=== PATIENT | male | born 1960 | race Caucasian/White ===

== ENCOUNTER 2016-09-02 16:30 | Inpatient (IN) | payer BC ==
[~2016-09-02] VITALS: Ht 172.7 cm; Wt 95.2 kg
--- NOTE | ~2016-09-02 | H ---
[facility] [address] [place] [address] HISTORY AND PHYSICAL Name: BEAU CR Room #: 210-P [facility] IN M.R.#: [id number] Admission: 09/02/16 Attend Phys: Harsha Duran MD, Discharge: 09/09/16 Date of : 62 Report #: [id number] THIS REPORT FOR: //name// For History and Physical, please see office documentation/handwritten note in the patient's medical record. <ELECTRONICALLY SIGNED> By: Harsha Duran MD, FACC 09/16/16 0936 1449 Harsha Duran MD, FACC /jr
--- NOTE | ~2016-09-02 | EKG ---
[address] [place] [address] ELECTROCARDIOGRAM REPORT Name: BEAU CR Room #: 210-P ADM IN M.R.#: [id number] Admission: 09/02/16 Attend Phys: Harsha Duran MD, Discharge: Date of : 62 Report #: [id number] THIS REPORT FOR: //name// [facility] Test Date: 2016-09-08 Test Time: 06:41:02 Pat Name: BEAU CR Department: Room: 210 P Gender: M Picture Painter: ang : 1960 Requested By: Charlie Benítez Order Number: [id number] MD: Wallace Jett Measurements Intervals [place] Rate: 103 P: 9 MD: 146 QRS: -27 QRSD: 134 T: 31 QT: 376 QTc: 492 Interpretive Statements Sinus tachycardia Right bundle branch block Cannot rule out anteroseptal infarct, age indeterminate Compared to ECG 09/03/2016 19:41:04 No significant change was found Electronically Signed On 09-08-2016 9:04:13 ICT PROGRAMMER by Wallace Jett [email or web address] <ELECTRONICALLY SIGNED> By: Wallace Jett MD, [facility] 09/08/16 0904 0641 0641 Wallace Jett MD, [facility] /EPI
--- NOTE | ~2016-09-02 | O ---
[facility] [address] [address] OPERATIVE REPORT Name: BEAU CR Room #: 210-P [facility] IN M.R.#: [id number] Admission: 09/02/16 Attend Phys: Harsha Duran MD, Discharge: 09/09/16 Date of : 62 Report #: [id number] THIS REPORT FOR: //name// CC: HARSHA Narayan DO AMENDED REPORT - SEE BELOW DATE OF SERVICE: 09/04/2016 PREOPERATIVE DIAGNOSIS: Coronary artery disease. POSTOPERATIVE DIAGNOSIS: Coronary artery disease. OPERATION: Coronary artery bypass x 4 including left internal mammary artery to left anterior descending artery, saphenous vein to diagonal, marginal 1, and marginal 2 and endoscopic harvest, left greater saphenous vein. SURGEON: Charlie Benítez M.D. LAUNDRY EQUIPMENT OPERATOR: Maged. ANESTHESIA: General. INDICATIONS: The patient was seen at the request of Dr. Duran. The patient has progressive exertional angina and some rest angina. Catheterization demonstrated important coronary artery disease in the LAD and circumflex system. The LAD is chronically occluded as high-grade lesions in the circumflex and the first marginal and there was left main stenosis as well. The right coronary had trivial disease. Left ventricular function reasonable overall with some anteroapical hypokinesis. FINDINGS AND TECHNIQUE: After general anesthesia was established, saphenous vein was harvested using an endoscopic approach and prepared for use as a conduit. Exposure was obtained through median sternotomy. Left internal mammary artery was harvested from chest wall. Pericardial well was made. Cannulation sutures were placed. Heparin was given. Aorta was cannulated. Right atrium was cannulated. Cardioplegia needle was positioned in the aortic root. Retrograde cardioplegic catheter was placed in coronary sinus. Cardiopulmonary bypass was established. The aorta was cross clamped. Antegrade and retrograde cardioplegia were given. Ice was poured in the pericardial well. The heart was stopped. [facility] [address] [place] [address] OPERATIVE REPORT Name: BEAU CR Room #: 210-P [facility] IN [facility]#: [id number] Admission: 09/02/16 Attend Phys: Harsha Duran MD, Discharge: 09/09/16 Date of : 62 Report #: [id number] During electromechanical arrest, the distal anastomoses were performed, an end-to-side anastomosis was made between the vein and the second marginal. This was a 1.5 mm vessel. Cold cardioplegia was given. Same segment of vein was sewn in rapa-cg-[id number] fashion to first marginal. Cold cardioplegia was given. Same segment of vein was sewn in [id number]-ft-wgpt fashion to first diagonal. This was a 1.3 mm vessel. Cold cardioplegia was given. Left internal mammary artery was sewn in end-to-side fashion to left anterior descending artery. This was a 1.5 mm vessel where bypassed. The anastomosis was checked with the temperature technique. Cold cardioplegia was given. One proximal anastomosis was performed and this was complete, warm retrograde cardioplegia was given followed by warm continuous blood to the coronary sinus. When this infusion was complete, the crossclamp was removed, de-airing maneuvers were performed. The anastomoses were inspected and found to be satisfactory. As the patient warmed, nice cardiac activity resumed, chest tubes and pacing wires were placed, a marker was placed around the proximal anastomosis. When the patient was warmed, he was weaned from cardiopulmonary bypass. Venous cannula was removed. Protamine was given, the aortic cannula was removed. Flows were measured in the bypass grafts. Flow was 94 mL per minute. A good Doppler signal was audible in the internal mammary artery. Total cross clamp time was 80 minutes. Total pump time was 98 minutes. When hemostasis was satisfactory, chest was irrigated with antibiotic solution and closed in the usual fashion. The patient was taken to the Intensive Care Unit in good condition having tolerated the procedure well. All counts reported as correct. AMENDED - 09/08/16 REPORT ORIGINALLY E.SIGNED - 09/07/16 @ 0937 Report was edited to add date of service. <ELECTRONICALLY SIGNED> By: Charlie Benítez MD 09/13/16 1024 1928 2257 Charlie Benítez MD /nt
--- NOTE | ~2016-09-02 | EKG ---
[address] [address] ELECTROCARDIOGRAM REPORT Name: BEAU CR Room #: 150- ADM IN .R.#: [id number] Admission: 09/02/16 Attend Phys: Harsha Duran MD, Discharge: Date of : 62 Report #: [id number] THIS REPORT FOR: //name// [facility] ED Test Date: 2016-09-02 Test Time: 16:34:15 Pat Name: BEAU CR Department: Room: 150 Gender: M Cardiology Consultant: NATACHA : 1960 Requested By: Margarita Marquez Order Number: [id number] MD: Hernandez Ruiz Measurements Intervals [place] Rate: 85 P: 49 [place]: 167 QRS: -32 QRSD: 91 T: 46 QT: 357 QTc: 425 Interpretive Statements Sinus rhythm Left axis deviation Low voltage, precordial leads Probable anteroseptal infarct, old Minimal ST depression, lateral leads No previous ECG available for comparison Electronically Signed On 09-04-2016 10:56:24 ELECTRICAL EQUIPMENT TESTER by Hernandez Ruiz [email or web address] <ELECTRONICALLY SIGNED> By: Hernandez Ruiz MD 09/04/16 1056 1634 1634 Hernandez Ruiz MD /EPI
--- NOTE | ~2016-09-02 | HC ---
[facility] [address] [place] [address] CONSULTATION Name: BEAU CR Room #: 210-P [facility] IN M.R.#: [id number] Admission: 09/02/16 Attend Phys: Harsha Duran MD, Discharge: Date of : 62 Report #: [id number] THIS REPORT FOR: //name// CC: Harsha Narayan We were asked by Dr. Duran to see the patient. HISTORY OF PRESENT ILLNESS: The patient is a 55-year-old with coronary artery disease. The patient states that he has had progressive exertional angina over the last year and particularly the patient has noted substernal chest discomfort with exertion. This is not radiating, was thought to be epigastric or possibly GI in origin, but ultimately he sought cardioplegic evaluation. As mentioned, this was substernal chest pain without radiation occuring with exertion and sometimes at rest. No diaphoresis, no nausea, moderately severe and progressive over the last few months. Cardiac catheterization today demonstrates important left-sided disease. There is a 70% left main lesion as well as a total occlusion of the LAD that was filled by right to left collaterals, diagonal 1 is a 95% lesion and circumflex is a 95% lesions, right coronary has trivial disease, left ventricular function appeared satisfactory with some anteroapical hypokinesis. PAST MEDICAL HISTORY: Significant for hypertension, hyperlipidemia and benign prostatic hypertrophy. ALLERGIES: ATORVASTATIN, FLOMAX, TRAMADOL, FIBERCON, PROSCAR. HOME MEDICATIONS: Include doxycycline and lisinopril. FAMILY HISTORY: Is positive for coronary artery disease. Father had coronary artery bypass in his 60s. SOCIAL HISTORY: The patient is nonsmoker. He is with two children. REVIEW OF SYSTEMS: CONSTITUTIONAL: The patient has had fatigue over the last few months, no sleeping issues. HEENT: No vision problems, no hearing problems, no vertigo, no headaches. RESPIRATORY: Some mild shortness of breath with exertion and fatigue. No cough, no sputum production. CARDIAC: As mentioned epigastric or epicardial discomfort. No palpitations. SKIN: No rash or infection. ENDOCRINE: No hot or cold intolerance. No lack or concentration. GASTROINTESTINAL: No nausea, vomiting, diarrhea. [facility] [address] [place] [address] CONSULTATION Name: BEAU CR Patel Room #: [address] [place] [address]#: [id number] Admission: 09/02/16 Attend Phys: Harsha Duran MD, Discharge: Date of : 62 Report #: [id number] GENITOURINARY: The patient has had symptoms of prostatism including frequency, urgency. NEUROLOGIC: No motor or sensory dysfunction. PSYCHIATRIC: No hallucination, depression or anxiety. MUSCULOSKELETAL: No bone or joint pain. IMMUNOLOGIC: No lupoid rash, no rheumatoid . PHYSICAL EXAMINATION: GENERAL: The patient is a pleasant fellow. VITAL SIGNS: Blood pressure 106/62, heart rate 65, respiratory rate 18, temperature 36.8, O2 sat 97 on room air. The patient is somewhat diminutive and endomorphic . HEENT: Pupils are round, equal, normocephalic, gaze conjugate. NECK: No lymphadenopathy, no bruit. CHEST: Clear to auscultation. HEART: Rhythm regular, no murmurs or gallops. ABDOMEN: Soft, no mass, no tenderness. EXTREMITIES: No clubbing, cyanosis or edema, 2+ distal pulses. No obvious saphenous vein problems. SKIN: No rash or infection. MUSCULOSKELETAL: No bone or joint dyssymmetry or deformity. NEUROLOGIC: Motor and sensory intact without deficit. Oriented and appropriate. PSYCHIATRIC: Shows insight into problem. Mood is appropriate neither artificially elevated or depressed. ASSESSMENT: The patient has important left main and a left-sided disease. I have recommended coronary artery bypass surgery. Risks include, but are not limited to bleeding, infection, anesthesia risks, heart and lung problems, stroke and . Options and alternatives were reviewed. The patient understands all of this and he wishes to proceed. We plan surgery for tomorrow morning. Thank you for the consult. <ELECTRONICALLY SIGNED> By: Charlie Benítez MD 09/07/16 0937 30 24 Charlie Benítez MD /nt
--- NOTE | ~2016-09-02 | EKG ---
[address] [place] [address] ELECTROCARDIOGRAM REPORT Name: BEAU CR Room #: 210-P [facility] IN .R.#: [id number] Admission: 09/02/16 Attend Phys: Harsha Duran MD, Discharge: Date of : 62 Report #: [id number] THIS REPORT FOR: //name// [facility] Test Date: 2016-09-05 Test Time: 07:18:25 Pat Name: BEAU CR Department: Room: 210 Gender: M Internet Sales Manager: isabelle : 1960 Requested By: Wai Lynne Order Number: [id number] MD: Wallace Jett Measurements Intervals [place] Rate: 81 P: 33 [place]: 147 QRS: -33 QRSD: 132 T: 59 QT: 396 QTc: 460 Interpretive Statements Sinus rhythm Right bundle branch block Compared to ECG 09/03/2016 19:41:04 no significant change was found Electronically Signed On 09-08-2016 8:19:58 TUBE ROOM SUPERVISOR by Wallace Jett [email or web address] <ELECTRONICALLY SIGNED> By: Wallace Jett MD, [facility] [id number] 7 Wallace Jett MD, [facility] /EPI
--- NOTE | ~2016-09-02 | EKG ---
[address] [place] [address] ELECTROCARDIOGRAM REPORT Name: BEAU CR Room #: 210-[facility] IN .R.#: [id number] Admission: 09/02/16 Attend Phys: Harsha Duran MD, Discharge: Date of : 62 Report #: [id number] THIS REPORT FOR: //name// Test Date: 2016-09-04 Test Time: 14:47:56 Pat Name: BEAU CR Department: Room: 210 Gender: M Warehouse Receiving Clerk: Perfecto SHERIFF : 1960 Requested By: Wai Lynne Order Number: [id number] MD: Wallace Jett Measurements Intervals [place] Rate: 94 P: 39 [place]: 159 QRS: -47 QRSD: 132 T: 29 QT: 374 QTc: 468 Interpretive Statements Sinus rhythm Right bundle branch block Anteroseptal infarct, age indeterminate Compared to ECG 09/03/2016 19:41:04 Right bundle-branch block now present Electronically Signed On 09-08-2016 8:06:50 FISH WARDEN by Wallace Jett [email or web address] <ELECTRONICALLY SIGNED> By: Wallace Jett MD, [facility] 09/08/16 0806 1447 1447 Wallace Jett MD, [facility] /EPI
--- NOTE | ~2016-09-02 | EKG ---
[address] [place] [address] ELECTROCARDIOGRAM REPORT Name: BEAU CR Room #: 150-10 ADM IN .R.#: [id number] Admission: 09/02/16 Attend Phys: Harsha Duran MD, Discharge: Date of : 62 Report #: [id number] THIS REPORT FOR: //name// [facility] Test Date: 2016-09-03 Test Time: 19:41:04 Pat Name: BEAU CR Department: Room: 150 Gender: M Adjustment Examiner: Perfecto SHERIFF : 1960 Requested By: Charlie Benítez Order Number: [id number] MD: Hernandez Ruiz Measurements Intervals [place] Rate: 76 P: 45 [place]: 161 QRS: -39 QRSD: 101 T: 76 QT: 371 QTc: 418 Interpretive Statements Sinus rhythm Left axis deviation Probable anteroseptal infarct, old Minimal ST depression, lateral leads No previous ECG available for comparison Electronically Signed On 09-04-2016 11:16:53 SCRIPT READER by Hernandez Ruiz [email or web address] <ELECTRONICALLY SIGNED> By: Hernandez Ruiz MD 09/04/16 1116 40 40 Hernandez Ruiz MD /EPI
--- NOTE | ~2016-09-02 | CATHLAB ---
[facility] [address] [place] [address] INVASIVE PROCEDURE REPORT Name: BEAU CR Room #: 210-P [facility] IN .#: [id number] Admission: 09/02/16 Attend Phys: Harsha Duran, Discharge: 09/09/16 Date of : 62 Date of Service: 09/03/16 0934 Report #: [id number] THIS REPORT FOR: //name// CC: Harsha Narayan DO DESCRIPTION OF PROCEDURE: The patient brought to the catheterization lab with unstable angina, recurrent chest pain. The right groin was prepped and draped in sterile manner. Then 1% Xylocaine was used for local anesthesia. Versed was given for conscious sedation. A 6-Nepali sheath in the right femoral artery. All exchanges were made over the wire. Initially, a straight pigtail catheter performed a single WATTERS ventriculogram and AP aortogram. There is anterior apical hypokinesis, EF was 45 to 50%. The abdominal aorta was intact without aneurysm. Iliac and renal arteries were widely patent. FL4 for left coronary system, FR4 for the right coronary system, multiple views, no obliques were taken. There was evidence of high-grade proximal disease, distal left main, 70% ostial LAD, 70 to 80 proximal LAD, then occludes. Diagonal branch, first diagonal is high grade lesion, filling a bifurcating diagonal. Circumflex OM is a high grade 90 to 95% proximal lesion with 2 large OM branches. The third OM branch is mildly diseased ____, but good targets are noted on the OM branches and the diagonal. The JR4 for the right coronary artery fills the right coronary which has mild disease, 40 to 50% mid vessel lesions and the PDA and AILEEN, they briskly fills the entire LAD via the right coronary artery. So I suspect the entire anterior wall is viable. The patient tolerated this well without any hemodynamic compromise. A vascular sheath was removed with a Mynx closure. IV Lopressor was given for some mild tachycardia. He is hemodynamically stable. Transferred back to CCU for CV surgical consultation. Carotid Doppler has been already performed and echo in the office, those reports are in the chart. HEMODYNAMICS: At 108/72, LV 112/5. IMPRESSION: 1. Left main: Distal left main 70%. 2. Left anterior descending coronary artery ostial narrowing of ____, her 80% ostial narrowing within a total occlusion of the left anterior descending coronary artery, which is filled via left, but predominantly right collaterals. This is a wraparound left anterior descending coronary artery, which looks to be well preserved on the right coronary artery shots. 3. First diagonal high grade bifurcating lesion 95%. 4. Proximal circumflex nondominant but large 95% proximal lesion with well-preserved small first obtuse marginal coronary artery, large second obtuse marginal coronary artery widely patent, third obtuse marginal coronary artery 60 to 70% proximal. Second obtuse marginal artery and third obtuse marginal artery will be targets for bypass. 5. Dominant right large vessel mildly ectatic, giving rise to the posterior [facility] [address] [place] [address] INVASIVE PROCEDURE REPORT Name: BEAU CR Room #: 210-P [facility] IN M.R.#: [id number] Admission: 09/02/16 Attend Phys: Harsha Duran, Discharge: 09/09/16 Date of : 62 Date of Service: 09/03/16 0934 Report #: [id number] descending coronary artery and posterolateral coronary artery, 40% proximal and 50% midvessel, right coronary artery lesions briskly filling the entire left anterior descending coronary artery from collateral filling. 6. Normal left ventricular size with anterior apical hypokinesis, ejection fraction 45 to 50% range. 7. Abdominal aorta is intact without aneurysm. Single renal arteries and iliacs widely patent. 8. Successful closure of the right femoral artery with a Mynx closure device. RECOMMENDATIONS: Continue aggressive risk factor modification, CV surgical consultation, revascularization by bypass, echo Doppler reports and carotid Doppler reports from yesterday in the office or on the chart. We will hopefully proceed in the a.m. with revascularization by bypass. The patient came in with unstable anginal symptoms, pain relieved with nitroglycerin and heparin. We will restart nitroglycerin and hold on heparin unless he will have recurrent pain. <ELECTRONICALLY SIGNED> By: Harsha Duran MD, [facility] 09/16/16 0935 0934 51 Harsha Duran MD, FACC /nt
[2016-09-02 16:37] VITALS: BP 144/98
[2016-09-02] MEDS ORDERED: PROSCAR 5MG TABL5 M1 PO (17:00)
[2016-09-02 17:01] LABS: ABSOLUTE NEUTROPHILS 5.4 thou/uL (1.4-8.2); BASOPHILS 0.8 % (0.0-2.0); EOSINOPHILS 1.1 % (0.0-3.0); HEMATOCRIT 44.9 % (42.0-52.0); HEMOGLOBIN 15.5 gm/dL (14.0-18.0); LYMPHOCYTES 19.9 % (24.0-44.0); MANUAL DIFF NO; MCH 31.9 pg (26.0-34.0); MCHC 34.6 % (28.0-37.0); MONOCYTES 7.2 % (1.0-8.0); PLATELET COUNT 227 thou/uL (150-400); RBC 4.88 mil/uL (4.50-6.00); RDW 13.2 % (10.5-14.5); WBC 7.6 thou/uL (4.0-11.0)
[2016-09-02 17:15] LABS: APTT 27.7 Seconds (24.5-32.8); PROTIME 10.8 Seconds (9.3-11.4)
[2016-09-02 17:21] LABS: ANION GAP 8 mmol/L (7-16); BUN 15 mg/dL (7-18); CALCIUM 9.2 mg/dL (8.5-10.1); CHLORIDE 102 mmol/L (98-107); CO2 29 mmol/L (21-32); GLUCOSE 92 mg/dL (70-99); POTASSIUM 4.4 mmol/L (3.5-5.1); SODIUM 139 mmol/L (136-145); TROPONIN-I < 0.04 ng/mL (<0.04-0.07)
[2016-09-02] MEDS ORDERED: FLOMAX0.4 MG PO (17:24)
[2016-09-02] MEDS ORDERED: FIBERCON625 M1 PO (17:24)
[2016-09-02] MEDS ORDERED: TRAMADOL 50 MG50 MG PO (17:24)
[2016-09-02] MEDS ORDERED: LIPITOR 20 MG T20 M1 PO (17:26)
[2016-09-02] MEDS ORDERED: MELOXICAM15 MG PO (17:26)
[2016-09-02] MEDS ORDERED: LOPRESSOR50 PO (17:26)
[2016-09-02 18:04] VITALS: BP 126/85
[2016-09-02 18:25] VITALS: BP 120/84
[2016-09-02 19:47] VITALS: BP 107/63
[2016-09-03] VITALS (12 sets, daily range): BP systolic 103–148; BP diastolic 62–82
[2016-09-03 15:27] LABS: HEMATOCRIT 45.1 % (42.0-52.0); HEMOGLOBIN 15.5 gm/dL (14.0-18.0); MCHC 34.3 % (28.0-37.0); MCV 93.2 fL (80.0-100.0); RBC 4.84 mil/uL (4.50-6.00); RDW 13.4 % (10.5-14.5)
[2016-09-03 15:35] LABS: CALCIUM 8.9 mg/dL (8.5-10.1); CREATININE 1.2 mg/dL (0.6-1.3); POTASSIUM 4.2 mmol/L (3.5-5.1)
[2016-09-03 15:41] LABS: ALBUMIN 3.6 g/dL (3.4-5.0); TOTAL BILIRUBIN 0.5 mg/dL (<0.1-1.0); TOTAL PROTEIN 6.6 g/dL (6.4-8.2)
[2016-09-03 15:47] LABS: APTT 30.1 Seconds (24.5-32.8); INR 1.1; PROTIME 10.9 Seconds (9.3-11.4)
[2016-09-03 18:41] LABS: URINE BILIRUBIN NEGATIVE (Negative); URINE BLOOD NEGATIVE (Negative); URINE COLOR YELLOW; URINE GLUCOSE-RANDOM* NEGATIVE (Negative); URINE KETONES NEGATIVE (Negative); URINE LEUKOCYTES-REFLEX NEGATIVE (Negative); URINE PROTEIN (DIPSTICK) NEGATIVE (Negative); URINE SPECIFIC GRAVITY 1.015 (1.003-1.035); URINE UROBILINOGEN 0.2 E.U./dl (0.2-1.0)
[2016-09-04 02:06] LABS: GLYCOHEMOGLOBIN (HGB A1C) 5.2 % (4.8-5.6)
[2016-09-04 05:05] LABS: HEMOGLOBIN 14.7 gm/dL (14.0-18.0); MCH 31.9 pg (26.0-34.0); MCHC 33.3 % (28.0-37.0); MCV 95.6 fL (80.0-100.0); RBC 4.6 mil/uL (4.50-6.00); RDW 13.3 % (10.5-14.5); WBC 8.8 thou/uL (4.0-11.0)
[2016-09-04 05:15] LABS: CALCIUM 8.9 mg/dL (8.5-10.1); CREATININE 0.9 mg/dL (0.6-1.3); POTASSIUM 4.2 mmol/L (3.5-5.1)
[2016-09-04 05:42] VITALS: BP 136/84
[2016-09-04 07:15] VITALS: BP 114/75
[2016-09-04 13:04] VITALS: BP 107/67
[2016-09-04 13:06] LABS: ABG SAMPLE TYPE ARTERIAL; BE(vivo) -4.3 mmol/L (-2 to +3); HCO3 21.8 mmol/L (22.0-26.0); LACTATE 2.06 mmol/L (0.5-2.0); O2(CT) 17.7 mL/dL (15.0-23.0); PCO2 43.7 mmHg (35.0-45.0); PO2 143.7 mmHg (80.0-100.0); sO2 98.6 % (92.0-98.0); tCO2 23.1 mmol/L (24.0-30.0)
[2016-09-04 13:07] LABS: STICK SITE ART LINE; TIDAL VOLUME 700 ml; pH 7.315 (7.360-7.450)
[2016-09-04 13:08] LABS: VDS CMV MODE cc
[2016-09-04 13:09] LABS: POC BE 0 mmol/L (-2.0 to +3.0); POC CA IONIZED 4.6 mg/dL (4.5-5.3); POC FiO2 100 %; POC GLUCOSE 140 mg/dL (70-99); POC HCO3 25.6 mmol/L (22.0-26.0); POC HEMOGLOBIN 12.9 gm/dL (14.0-18.0); POC POTASSIUM 4.8 mmol/L (3.5-5.1); POC SODIUM 136 mmol/L (136-145); POC pCO2 45.1 mmHg (35.0-45.0); POC pH 7.362 (7.360-7.450)
[2016-09-04 13:09] LABS: POC BE -2 mmol/L (-2.0 to +3.0); POC FiO2 100 %; POC GLUCOSE 154 mg/dL (70-99); POC HCO3 24.2 mmol/L (22.0-26.0); POC HEMOGLOBIN 9.2 gm/dL (14.0-18.0); POC SODIUM 135 mmol/L (136-145); POC pCO2 44.9 mmHg (35.0-45.0)
[2016-09-04 13:09] LABS: POC BE 0 mmol/L (-2.0 to +3.0); POC CA IONIZED 4.1 mg/dL (4.5-5.3); POC FiO2 100 %; POC GLUCOSE 139 mg/dL (70-99); POC HCO3 25.7 mmol/L (22.0-26.0); POC HEMOGLOBIN 10.5 gm/dL (14.0-18.0); POC POTASSIUM 5.6 mmol/L (3.5-5.1); POC SODIUM 134 mmol/L (136-145); POC pH 7.347 (7.360-7.450)
[2016-09-04 13:09] LABS: POC BE -2 mmol/L (-2.0 to +3.0); POC CA IONIZED 4.1 mg/dL (4.5-5.3); POC FiO2 100 %; POC GLUCOSE 173 mg/dL (70-99); POC HCO3 23.3 mmol/L (22.0-26.0); POC HEMOGLOBIN 9.5 gm/dL (14.0-18.0); POC SODIUM 132 mmol/L (136-145); POC pCO2 41.4 mmHg (35.0-45.0); POC pH 7.359 (7.360-7.450)
[2016-09-04 13:09] LABS: POC BE -1 mmol/L (-2.0 to +3.0); POC CA IONIZED 4.1 mg/dL (4.5-5.3); POC FiO2 100 %; POC GLUCOSE 150 mg/dL (70-99); POC HCO3 24.9 mmol/L (22.0-26.0); POC HEMOGLOBIN 9.5 gm/dL (14.0-18.0); POC SODIUM 130 mmol/L (136-145); POC pCO2 47.7 mmHg (35.0-45.0); POC pH 7.325 (7.360-7.450)
[2016-09-04 13:09] LABS: POC BE -3 mmol/L (-2.0 to +3.0); POC CA IONIZED 4.6 mg/dL (4.5-5.3); POC FiO2 100 %; POC GLUCOSE 145 mg/dL (70-99); POC HCO3 22.6 mmol/L (22.0-26.0); POC HEMOGLOBIN 11.2 gm/dL (14.0-18.0); POC POTASSIUM 4.3 mmol/L (3.5-5.1); POC SODIUM 138 mmol/L (136-145); POC pH 7.361 (7.360-7.450)
[2016-09-04 13:09] LABS: POC BE 0 mmol/L (-2.0 to +3.0); POC CA IONIZED 4.7 mg/dL (4.5-5.3); POC FiO2 100 %; POC GLUCOSE 115 mg/dL (70-99); POC HCO3 25.3 mmol/L (22.0-26.0); POC HEMOGLOBIN 12.6 gm/dL (14.0-18.0); POC POTASSIUM 4.3 mmol/L (3.5-5.1); POC SODIUM 138 mmol/L (136-145); POC pCO2 44.4 mmHg (35.0-45.0); POC pH 7.364 (7.360-7.450)
[2016-09-04 13:09] LABS: POC BE -6 mmol/L (-2.0 to +3.0); POC CA IONIZED 4.2 mg/dL (4.5-5.3); POC FiO2 100 %; POC GLUCOSE 135 mg/dL (70-99); POC HCO3 20.8 mmol/L (22.0-26.0); POC HEMOGLOBIN 10.9 gm/dL (14.0-18.0); POC POTASSIUM 5.6 mmol/L (3.5-5.1); POC SODIUM 135 mmol/L (136-145); POC pCO2 42.8 mmHg (35.0-45.0); POC pH 7.295 (7.360-7.450)
[2016-09-04 13:15] VITALS: BP 97/67
[2016-09-04 13:19] LABS: HEMATOCRIT 36.6 % (42.0-52.0); MCH 31.8 pg (26.0-34.0); MCHC 34.2 % (28.0-37.0); MCV 92.8 fL (80.0-100.0); RBC 3.95 mil/uL (4.50-6.00); RDW 13.3 % (10.5-14.5); WBC 17.6 thou/uL (4.0-11.0)
[2016-09-04 13:20] LABS: HEMOGLOBIN 12.5 gm/dL (14.0-18.0)
[2016-09-04 13:28] LABS: CREATININE 1.1 mg/dL (0.6-1.3); POTASSIUM 4.7 mmol/L (3.5-5.1)
[2016-09-04 13:30] VITALS: BP 106/77
[2016-09-04 15:03] LABS: ABG SAMPLE TYPE ARTERIAL; BE(vivo) -5.6 mmol/L (-2 to +3); HCO3 19.4 mmol/L (22.0-26.0); LACTATE 1.99 mmol/L (0.5-2.0); O2(CT) 18.2 mL/dL (15.0-23.0); O2Hb 97.2 % (92.0-98.0); PCO2 36.5 mmHg (35.0-45.0); PO2 130.6 mmHg (80.0-100.0); STICK SITE LINE; TIDAL VOLUME 700 ml; pH 7.344 (7.360-7.450); sO2 98.5 % (92.0-98.0); tCO2 20.5 mmol/L (24.0-30.0)
[2016-09-04 15:04] LABS: ABG COMMENT PRE-CPAP
[2016-09-04 16:37] LABS: ABG SAMPLE TYPE ARTERIAL; BE(vivo) -4.7 mmol/L (-2 to +3); HCO3 21.7 mmol/L (22.0-26.0); LACTATE 1.96 mmol/L (0.5-2.0); O2(CT) 18.4 mL/dL (15.0-23.0); O2Hb 94.1 % (92.0-98.0); PO2 81.7 mmHg (80.0-100.0); STICK SITE LINE; pH 7.301 (7.360-7.450); sO2 94.9 % (92.0-98.0); tCO2 23.1 mmol/L (24.0-30.0)
[2016-09-04 16:38] LABS: Pressure Support 6 cm H20
[2016-09-04 17:22] LABS: HEMATOCRIT 39.8 % (42.0-52.0); HEMOGLOBIN 13.5 gm/dL (14.0-18.0); MCH 31.5 pg (26.0-34.0); MCHC 33.8 % (28.0-37.0); MCV 93.2 fL (80.0-100.0); RBC 4.27 mil/uL (4.50-6.00); RDW 13.3 % (10.5-14.5); WBC 16.5 thou/uL (4.0-11.0)
[2016-09-04 17:31] LABS: CALCIUM 8.3 mg/dL (8.5-10.1); CREATININE 1.3 mg/dL (0.6-1.3); POTASSIUM 4.4 mmol/L (3.5-5.1)
[2016-09-04 17:33] LABS: ABG SAMPLE TYPE ARTERIAL; BE(vivo) -5.9 mmol/L (-2 to +3); HCO3 19.5 mmol/L (22.0-26.0); LACTATE 1.98 mmol/L (0.5-2.0); O2(CT) 18.6 mL/dL (15.0-23.0); O2Hb 96.5 % (92.0-98.0); PCO2 37.9 mmHg (35.0-45.0); PO2 107.5 mmHg (80.0-100.0); sO2 97.6 % (92.0-98.0); tCO2 20.7 mmol/L (24.0-30.0)
[2016-09-04 17:34] LABS: ABG COMMENT POST EXTUBATION; Face Shield 50 %; STICK SITE LINE; pH 7.329 (7.360-7.450)
[2016-09-05] VITALS (10 sets, daily range): BP systolic 112–129; BP diastolic 71–83
[2016-09-05 04:31] LABS: HEMATOCRIT 37.8 % (42.0-52.0); HEMOGLOBIN 12.9 gm/dL (14.0-18.0); MCHC 34.3 % (28.0-37.0); MCV 93.4 fL (80.0-100.0); RBC 4.05 mil/uL (4.50-6.00); RDW 13.6 % (10.5-14.5); WBC 16.6 thou/uL (4.0-11.0)
[2016-09-05 04:39] LABS: CALCIUM 8.1 mg/dL (8.5-10.1); POTASSIUM 3.9 mmol/L (3.5-5.1)
[2016-09-06] VITALS (9 sets, daily range): BP systolic 107–126; BP diastolic 71–84
[2016-09-07 03:55] VITALS: BP 114/73
[2016-09-07 08:10] VITALS: BP 111/70
[2016-09-07 12:15] VITALS: BP 110/71
[2016-09-07 16:50] VITALS: BP 118/78
[2016-09-07 20:38] VITALS: BP 134/88
[2016-09-08 02:48] LABS: HEMATOCRIT 30.7 % (42.0-52.0); MCH 32.2 pg (26.0-34.0); MCHC 33.8 % (28.0-37.0); RBC 3.23 mil/uL (4.50-6.00); RDW 13.1 % (10.5-14.5); WBC 8.8 thou/uL (4.0-11.0)
[2016-09-08 02:57] LABS: CALCIUM 8.2 mg/dL (8.5-10.1); POTASSIUM 3.9 mmol/L (3.5-5.1)
[2016-09-08 02:58] LABS: HEMOGLOBIN 10.4 gm/dL (14.0-18.0)
[2016-09-08 03:46] VITALS: BP 112/75
[2016-09-08 08:20] VITALS: BP 133/79
[2016-09-08 13:20] VITALS: BP 117/76
[2016-09-08 15:40] VITALS: BP 107/73
[2016-09-08 19:43] VITALS: BP 131/82
[2016-09-09 04:06] VITALS: BP 112/74
[2016-09-09] MEDS ORDERED: ASPIR 8181 MG PO (07:42)
[2016-09-09] MEDS ORDERED: CRESTOR10 MG PO (07:42)
[2016-09-09] MEDS ORDERED: LOPRESSOR50 PO (07:43)
[2016-09-09] MEDS ORDERED: PACERONE 200 M200 M1 PO (07:43)
[2016-09-09] MEDS ORDERED: HYDROCODONE-AP1 EAC6 PO (08:15)
[2016-09-09 09:07] VITALS: BP 135/88
[2016-09-09 11:22] VITALS: BP 135/88
[2016-09-09 11:29] VITALS: BP 135/88
[2016-09-09 11:30] VITALS: BP 135/88
== END 2016-09-09 12:30 | disposition home or self-care (01) | DRG 234 ==
LOC: ER 16:30 → 2N 16:45 → EROBS 16:45 → 2N 18:04 → TBA 09-04 07:58 → ICU 09-04 13:20 → 2N 09-06 15:49
PROVIDERS: Emergency Medicine; Internal Medicine Cardiovascular Disease; Physician Assistant; Surgery Vascular Surgery
PROC: 4A023N7 Measurement of Cardiac Sampling and Pressure, Left Heart, Percutaneous Approach (ICD-10-PCS; 2016-09-03)
PROC: B2111ZZ Fluoroscopy of Multiple Coronary Arteries using Low Osmolar Contrast (ICD-10-PCS; 2016-09-03)
PROC: B4101ZZ Fluoroscopy of Abdominal Aorta using Low Osmolar Contrast (ICD-10-PCS; 2016-09-03)
PROC: B2151ZZ Fluoroscopy of Left Heart using Low Osmolar Contrast (ICD-10-PCS; 2016-09-03)
PROC: 0212093 Bypass Coronary Artery, Three Arteries from Coronary Artery with Autologous Venous Tissue, Open Approach (ICD-10-PCS; principal; 2016-09-04)
PROC: B24BZZ4 Ultrasonography of Heart with Aorta, Transesophageal (ICD-10-PCS; principal; 2016-09-04)
PROC: 5A1221Z Performance of Cardiac Output, Continuous (ICD-10-PCS; principal; 2016-09-04)
PROC: 06BQ4ZZ Excision of Left Saphenous Vein, Percutaneous Endoscopic Approach (ICD-10-PCS; principal; 2016-09-04)
PROC: 02100Z9 Bypass Coronary Artery, One Artery from Left Internal Mammary, Open Approach (ICD-10-PCS; principal; 2016-09-04)
DX: I25.110 Atherosclerotic heart disease of native coronary artery with unstable angina pectoris (principal); I10 Essential (primary) hypertension; N40.0 Benign prostatic hyperplasia without lower urinary tract symptoms; E78.5 Hyperlipidemia, unspecified; I25.5 Ischemic cardiomyopathy; R00.0 Tachycardia, unspecified; I25.82 Chronic total occlusion of coronary artery; Z88.8 Allergy status to other drugs, medicaments and biological substances; Z79.82 Long term (current) use of aspirin; Z79.899 Other long term (current) drug therapy; Z88.6 Allergy status to analgesic agent; Z82.49 Family history of ischemic heart disease and other diseases of the circulatory system; Z98.890 Other specified postprocedural states; Z90.49 Acquired absence of other specified parts of digestive tract
CPT/HCPCS: 10078; 10081; 10797; 47000; 47001; 47002; 47297; 48888; 50010; 50249; 50409; 50456; 50498; 50668; 51301; 52131; 52259; 53327; 53358; 54118; 56524; 56525; 56526; 56527; 56528; 56531; 56534; 56660; 56805; 56898; 57093; 62110; 62950; 83006